=== PATIENT | female | born 1960 | race Caucasian/White ===

== ENCOUNTER 2016-05-17 08:29 | Emergency (ER) | payer OTHER ==
[~2016-05-17] VITALS: Ht 170.2 cm; Wt 90.9 kg
[2016-05-17 08:40] VITALS: BP 124/75; RESP 16; O2SAT 98
--- NOTE | 2016-05-17 09:09 | ED.REPORT ---
HPI-URI / Cough / Cold Date of Service May 17, 2016 ED Provider: MD Shauna This is a 56 year old female presenting to the emergency department complaining of left ear pain that began 3 days ago. Pt states she went swimming and developed throbbing left ear pain that evening. The next day she woke up and noticed purulent drainage from the left ear. This is associated with a foul taste in her mouth. She denies fever, chills, hearing loss, nausea, vomiting, bowel or bladder changes, or headaches. She has a history of similar presentations that is usually treated with antibiotics as reported. Nursing Notes Stated Complaint: LEFT EAR PAIN Chief Complaint: ENT & Mouth Nursing Notes Reviewed: Yes Allergies: Coded Allergies: No Known Allergies (Unverified , 05/17/16) Scheduled Amoxicillin (Amoxicillin) 500 Mg Capsule 500 MG PO TID General Time Seen by MD: 09:08 Chief Complaint Earache left Hx Obtained From: Patient Arrived By: Walk-in Onset Occurred: 3 days ago Symptom Duration: Since onset Severity: Current: Moderate Pertinent Negative: Pt denies other symptoms Recent Healthcare: No recent doctor visit, No recent hospitalization Similar Sx Previous: No Past Medical History Past Medical History Denies Past Surgical History Denies Ambulatory Status Independent Review of Systems Constitutional: Denies: Chills, Fever Ears / Nose / Throat: Reports: Earache left, Denies: Hearing loss left Respiratory: Denies: Non-productive cough, Shortness of breath GI: Denies: Abdominal pain, Nausea, Vomiting Complete sys rev & neg: except as marked. Physical Exam Initial Vital Signs Vital Signs (First) Date Time Temp Pulse Resp B/P Pulse Ox O2 Delivery O2 Flow Rate FiO2 05/17/16 08:40 36.0 77 16 124/75 98 Initial VS: Reviewed Head / Eyes: Atraumatic, Normocephalic, PERRL Neck: Supple, Non-tender, Full range of motion Cardiovascular: Regular rate & rhythm, Heart sounds normal, Intact distal pulses Abdomen / GI: Soft, Non-tender, No guarding, No rebound, No distention Extremities: Vascular intact, Neuro intact, No swelling, No tenderness Skin: Warm, Dry, No cyanosis Neurologic: Alert, Oriented, Nonfocal Psychiatric: Mood/affect normal, Behavior normal, Normal thought content General/Constitutional: Awake, Alert, Well appearing ENT: Mucous membranes moist, Pharynx NL Left Ear / Mastoid: Positive: Discharge purulent Right TM is normal. Left TM: purulent drainage without erythema, no bloody discharge, no odor. No tenderness over the mastoid Respiratory / Chest: Breath sounds NL, Breath sounds = bilat, No respiratory distress, No rales, No rhonchi, No wheezing, No retractions, No stridor Re-Eval/Medical Decision Counseled Regarding: Diagnosis, Lab results, Need for follow-up, When/why to return to ED Discharge & Departure Impression: Primary Impression: Otitis media, purulent Laterality: left Chronicity: unspecified Qualified Code: H66.42 - Suppurative otitis media, unspecified, left ear Additional Impression: Tympanic membrane perforation Laterality: left Qualified Code: H72.92 - Unspecified perforation of tympanic membrane, left ear Ruled Out: Mastoiditis, Malignant otitis externa Disposition: Home Discharge Condition All VS Reviewed: Yes Condition: Stable Patient Instructions: Tympanic Membrane Perforation (ED), Otitis Media (ED) Additional Instructions: Thank you for seeking care in the emergency department today. Take amoxicillin 3x/day as prescribed. You may also take ibuprofen or Tylenol as needed for pain control. Be sure to use silicone ear plugs when you go swimming and be aware than any diving will likley get water around the plugs. You need to establish a primary care provider for further evaluation. You may also benefit from seeing an ENT doctor to see if you do have a chronic perforation on the left side. Return to the emergency department for any new or worsening symptoms such as fever, chills, worsening drainage, or foul smelling drainage from your ear. 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 Please make sure you take some of that care giving skill and use it on yourself. Referrals: Leonidas Owen MD [facility] Scribe Attestation Portions of this note were transcribed by Madai Banegas. I, Dr. Villatoro personally performed the history, physical exam and medical decision-making; I reviewed and confirmed the accuracy of the information in the transcribed note. Signed by: alyssa Gallo. 05/17/2016, 18:00. copies to: Leonidas Owen MD; [facility] Lisa Villatoro MD May 17, 2016 09:09 MADAI BANEGAS May 17, 2016 09:17
[2016-05-17] MEDS ORDERED: AMOX500C2 PO (09:29)
== END 2016-05-17 11:01 | disposition home or self-care (01) ==
LOC: SED 08:29
DX: H66.42 Suppurative otitis media, unspecified, left ear (principal); H72.92 Unspecified perforation of tympanic membrane, left ear